=== PATIENT | female | born 1975 | race Caucasian/White ===

== ENCOUNTER 2023-12-18 19:18 | Emergency (ER) | payer SELFPAY ==
[~2023-12-18] VITALS: Ht 162.6 cm; Wt 68.2 kg
[~2023-12-18 19:18] MED LIST: LORTAB 5/500 501 TAB PO; NO HOME MEDICATIONS
[2023-12-18 19:41] VITALS: TEMP 98.6
[2023-12-18] MEDS ORDERED: AMOXICILLIN 8751 TAB PO (21:33)
[2023-12-18 21:44] VITALS: BP 119/87; PULSE 99
== END 2023-12-18 21:44 | disposition home or self-care (01) ==
LOC: COL.ER 19:18
DX: J32.9 Chronic sinusitis, unspecified (principal)